=== PATIENT | female | born 1965 | race African-American/Black ===

== ENCOUNTER → 2017-05-26 | Outpatient (CLI) | payer OTHER ==
[~2017-05-26] MED LIST: ASPIRIN 32325 MG/TAB PO; ASPIRIN E.C. 8181 MG PO; BPO TP; BUTAL; CALCIUM CITRATE1 TA2 PO; CLARITIN 1010 MG/TAB PO; DEPO PROVER150 MG/ML IM; IBU800 M1 PO; INDERAL 80 MG PO; MAG-OX 400400 MG PO; MAXALT-MLT10 MG PO; MIDRIN 325 MG-11 CAP PO; MYRBETR50MG PO; NAPROSYN500 MG PO; NEURONTIN300 MG/CAP PO; NEURONTIN800 MG/TAB PO; OMEGA-3 1000 MG1 CAP PO; OMEGA-3 FISH1000 MG PO; PAZEO2.5 ML OP; PRINIVIL40 MG PO; REFRESH PLUS 00.4 M1 OP; RIBOFLAVIN PO; VESICARE5 MG PO; VITAMIN D1000 IU PO; ZOFRAN ODT8 MG PO
== END ==
LOC: MHCPAIN 08:12
DX: G89.29 Other chronic pain (principal); M47.22 Other spondylosis with radiculopathy, cervical region; R51 Headache
CPT/HCPCS: G0463

== ENCOUNTER → 2017-07-16 | Outpatient (CLI) | payer OTHER | LOC: COL.RAD 07:18 | DX: M79.601 Pain in right arm (principal) ==

== ENCOUNTER → 2017-09-21 | Outpatient (CLI) | payer OTHER | LOC: MHCPAIN 13:48 | DX: G89.29 Other chronic pain (principal); M54.2 Cervicalgia; M79.2 Neuralgia and neuritis, unspecified | CPT/HCPCS: G0463 ==

== ENCOUNTER 2019-10-25 14:15 | Emergency (ER) | payer OTHER ==
[~2019-10-25] VITALS: Ht 165.1 cm; Wt 86.4 kg
[2019-10-25 14:24] VITALS: BP 124/75; TEMP 97.6
[2019-10-25] MEDS ORDERED: MAXALT5 MG PO (15:06)
[2019-10-25] MEDS ORDERED: NORVASC 5MG5 MG/TAB PO (15:06)
[2019-10-25] MEDS ORDERED: XALATAN EYE DROPS OD (15:07)
[2019-10-25] MEDS ORDERED: NORCO 325 MG-51 TAB PO (15:36)
[2019-10-25 15:53] VITALS: PULSE 64
== END 2019-10-25 15:53 | disposition home or self-care (01) ==
LOC: COL.ER 14:15
DX: S52.502A Unspecified fracture of the lower end of left radius, initial encounter for closed fracture (principal); G43.909 Migraine, unspecified, not intractable, without status migrainosus; W01.0XXA Fall on same level from slipping, tripping and stumbling without subsequent striking against object, initial encounter; Y92.009 Unspecified place in unspecified non-institutional (private) residence as the place of occurrence of the external cause
CPT/HCPCS: Q4050

== ENCOUNTER → 2020-10-11 | Outpatient (CLI) | payer OTHER ==
[~2020-10-11] MED LIST changes: +MAXALT5 MG PO; +NORCO 325 MG-51 TAB PO; +NORVASC 5MG5 MG/TAB PO; +XALATAN EYE DROPS OD
== END ==
LOC: COL.PUL 09:30
DX: R05 Cough (principal)
CPT/HCPCS: J7674